=== PATIENT | female | born 1940 | race Caucasian/White ===

== ENCOUNTER 2018-12-15 14:02 | Emergency (ER) | payer OTHER ==
[~2018-12-15] VITALS: Ht 160 cm; Wt 69.9 kg
[2018-12-15] MEDS ORDERED: CRESTOR5 MG PO (14:38)
[2018-12-15] MEDS ORDERED: NORVASC2.5 M1 (14:38)
== END 2018-12-15 20:56 | disposition home or self-care (01) ==
LOC: ER 14:02
DX: N30.81 Other cystitis with hematuria (principal); B96.89 Other specified bacterial agents as the cause of diseases classified elsewhere

== ENCOUNTER 2021-12-12 13:26 | Outpatient (CLI) | payer OTHER ==
[~2021-12-12 13:26] MED LIST: CRESTOR5 MG PO; NORVASC2.5 M1
== END 2021-12-12 13:33 | disposition home or self-care (01) ==
LOC: RAD 13:26
PROVIDERS: ATTEND Specialist
DX: M79.672 Pain in left foot (principal); M79.671 Pain in right foot

== ENCOUNTER → 2022-03-24 | Outpatient (CLI) | payer OTHER | END | disposition home or self-care (01) | LOC: RAD 10:25 | PROVIDERS: ATTEND Specialist | DX: Z01.818 Encounter for other preprocedural examination (principal); I11.9 Hypertensive heart disease without heart failure ==

== ENCOUNTER 2022-06-22 07:59 | Outpatient (CLI) | payer OTHER | END 2022-06-22 08:00 | disposition home or self-care (01) | LOC: LAB 07:59 | PROVIDERS: ATTEND Ophthalmology | DX: I11.9 Hypertensive heart disease without heart failure (principal); H25.012 Cortical age-related cataract, left eye; Z98.42 Cataract extraction status, left eye ==

== ENCOUNTER 2023-03-05 09:16 | Emergency (ER) | payer OTHER ==
[~2023-03-05] VITALS: Ht 157.5 cm; Wt 68.0 kg
[2023-03-05] MEDS ORDERED: CALCIUM500 M2 PO (09:29)
== END 2023-03-05 13:31 | disposition home or self-care (01) ==
LOC: ER 09:16
DX: J40 Bronchitis, not specified as acute or chronic (principal); R05.9 Cough, unspecified; E78.49 Other hyperlipidemia; E78.00 Pure hypercholesterolemia, unspecified; I10 Essential (primary) hypertension; Z20.822 Contact with and (suspected) exposure to COVID-19; Z85.71 Personal history of Hodgkin lymphoma

== ENCOUNTER 2024-06-14 14:43 | Outpatient (CLI) | payer OTHER ==
[~2024-06-14 14:43] MED LIST changes: +CALCIUM500 M2 PO
[2024-06-14 15:55] LABS: HEMATOCRIT 38.9 % (36.0-45.00); HEMOGLOBIN 13.1 g/dL (12.0-15.00); MEAN CELL VOLUME 90.7 fL (80.00-100.00); MEAN CORPUSCULAR HEMOGLOBIN 30.5 pg (27.00-32.0); MEAN CORPUSCULAR HGB CONC 33.6 g/dl (32.0-36.0); PLATELET COUNT 232 K/uL (150-450); RED BLOOD COUNT 4.29 M/uL (4.00-6.00); RED CELL DISTRIBUTION WIDTH 13.9 % (11.5-14.5)
[2024-06-14 16:13] LABS: ALBUMIN 4.3 gm/dL (3.4-5.0); BILIRUBIN TOTAL 0.64 mg/dL (0.3-1.2); CALCIUM 9.5 mg/dL (8.5-10.1); CREATININE SERUM 0.84 mg/dL (0.55-1.02); FERRITIN 112.7 NG/ML (8-252); GFR 64.91; GLOBULINA 3.6 G/DL (2.4-3.5); POTASSIUM 3.73 mEq/L (3.5-5.1); TOTAL PROTEIN 7.9 gm/dL (6.4-8.2)
[2024-06-15 08:42] LABS: MANUAL PLATELET COUNT 572
[2024-06-15 08:52] LABS: PLATELET ESTIMATE INCREASED (NORMAL)
[2024-06-15 12:29] LABS: FOLIC ACID > 20.00 ng/ml (4.78-20); VITAMIN D3 25 HYDROXY 41.76 ng/ml (30-120)
== END 2024-06-14 14:51 | disposition home or self-care (01) ==
LOC: LAB 14:43
PROVIDERS: ATTEND Internal Medicine Hematology & Oncology
DX: C81.21 Mixed cellularity Hodgkin lymphoma, lymph nodes of head, face, and neck (principal); C81.22 Mixed cellularity Hodgkin lymphoma, intrathoracic lymph nodes; C81.23 Mixed cellularity Hodgkin lymphoma, intra-abdominal lymph nodes; E78.2 Mixed hyperlipidemia; I10 Essential (primary) hypertension; D50.8 Other iron deficiency anemias; R79.9 Abnormal finding of blood chemistry, unspecified; R74.02 Elevation of levels of lactic acid dehydrogenase [LDH]; K76.89 Other specified diseases of liver; E55.9 Vitamin D deficiency, unspecified; C56.9 Malignant neoplasm of unspecified ovary; R97.8 Other abnormal tumor markers